=== PATIENT | female | born 1990 | race Caucasian/White ===

== ENCOUNTER → 2020-11-08 | Day surgery (SDC) | payer BC, OTHER ==
[~2020-11-08] MED LIST: BUPROPION HCL100 MG PO; COSENTYX (150 MG/1 M SQ; HYDROCODON-ACE1 EAC2 PO; HYDROCODON-ACE1 EAC6 PO; IBUPROFEN800 MG PO; LEVOTHYROXINE125 MCG PO
== END | disposition home or self-care (01) ==
LOC: OR 07:30
DX: S82.842A Displaced bimalleolar fracture of left lower leg, initial encounter for closed fracture (principal); S93.432A Sprain of tibiofibular ligament of left ankle, initial encounter; W18.30XA Fall on same level, unspecified, initial encounter; E89.0 Postprocedural hypothyroidism; F17.210 Nicotine dependence, cigarettes, uncomplicated; Z20.822 Contact with and (suspected) exposure to COVID-19; F32.9 Major depressive disorder, single episode, unspecified; L40.9 Psoriasis, unspecified
CPT/HCPCS: 73610; 76000; 84703; C1713; J0171; J0690; J1100; J1170; J2001; J2250; J2405; J2704; J2710; J2795; J3010; J7120